=== PATIENT | female | born 1975 | race Asian ===

== ENCOUNTER 2016-10-03 17:49 | Emergency (ER) | payer OTHER ==
--- NOTE | 2016-10-03 18:03 | EDPHY ---
H & P Time Seen by Provider: 10/03/16 18:03 Constitutional: Initial Vital Signs Temperature (C) 37.1 C 10/03/16 18:05 Heart Rate 80 10/03/16 18:05 Respiratory Rate 15 10/03/16 18:05 Blood Pressure 118/73 10/03/16 18:05 O2 Sat (%) 97 10/03/16 18:05 O2 Delivery Mode Room Air Allergies/Adverse Reactions: No Known Allergies Allergy (Verified 10/03/16 18:06) Home Medications: Medication Instructions Recorded NK [No Known Home Meds] 10/03/16 Medical Decision Making ED Course/Re-evaluation: CHIEF COMPLAINT: Right eye red and swollen HISTORY OF PRESENT ILLNESS: This patient is a healthy 41 year old female arriving today complaining of right eye redness and swelling onset yesterday. She reports crusty discharge this morning. She denies itching or any changes or decreases in vision. She denies symptoms indicative of systemic infection including fever, chills, nausea , vomiting. REVIEW OF SYSTEMS: A 10 point review of systems was performed and is negative with the exception of the elements mentioned in the history of present illness. PHYSICAL EXAM: HR, BP, O2 Sat, RR. Temp noted Visual Acuity: Noted from Nurse's notes. Pupils: PERRLA, EOMI, no nystagmus, no trauma, no injection. Lids: No edema or swelling Skin: No proptosis, no periorbital erythema or swelling, no vesicles Conjunctivae: Injection of conjunctiva. Not icteric, no discharge. Cornea: Unremarkable. Anterior chamber: Normal, no hyphema or hypopyon Posterior Chamber: No papilledema or hemorrhages. Past medical history: Denies Past surgical history: Unknown Family history: Unknown Social history: Lives locally. DIFFERENTIAL DIAGNOSIS: Including but not limited to: bacterial, viral, allergic, chemical, conjunctivitis; glaucoma MEDICAL DECISION MAKING: This patient is a 41 year old female presenting with erythema and swelling to her right eye onset yesterday. She denies any symptoms associated with systemic infection. She has no swelling or erythema of the lids, corneal exam is unremarkable. She will be treated for suspected bacterial conjunctivitis with take home Ocuflox. - Data Points Medications Given: Discontinued Medications Ofloxacin (Ocuflox 0.3% Opht Drops Prepack) 1 btl TAKEHOME EDNOW ONE Stop: 10/03/16 18:14 Last Admin: 10/03/16 18:15 Dose: 1 btl Departure - Departure Disposition: Home, Routine, Self-Care Clinical Impression: Acute conjunctivitis of right eye Qualifiers: Acute conjunctivitis type: bacterial Qualified Code(s): H10.31 - Unspecified acute conjunctivitis, right eye Condition: Good Instructions: Conjunctivitis (ED) Additional Instructions: 1. Take Ocuflox as prescribed to treat your conjunctivitis. 2. Follow up with ophthalmology for symptoms unresolved in []. We have referred you to the shutdown coordinator network liaison. 3. Return to the Emergency Department for any increase in eye pain, redness, swelling, discharge or any worsening of your vision. Referrals: Brenda Medrano MD [Medical Doctor] - As per Instructions Report Scribed for: Glenn Neville Report Scribed by: Mare Schofield Date of Report: 10/03/16 Time of Report: 18:08
[2016-10-03 18:09] VITALS: BP 118/73; PULSE 80; RESP 15; TEMP 98.8; O2SAT 97
[2016-10-03] MEDS ORDERED: OFLOXACIN 0.3% SOLN PREPACK OPHT.BTL TAKEHOME ONE (18:13)
== END 2016-10-03 18:29 | disposition home or self-care (01) ==
LOC: CED 17:49
DX: H10.31 Unspecified acute conjunctivitis, right eye (principal)